=== PATIENT | female | born 1995 | race Caucasian/White ===

== ENCOUNTER 2019-05-15 06:28 | Day surgery (SDC) | payer MEDICAID ==
[2019-05-15] MEDS ORDERED: Lidocaine 1% with EPINEPHrine 1:100,000 50 ML MDV ONE (06:43)
[2019-05-15] MEDS ORDERED: Bupivacaine 0.5% 50 ML MDV ONE (06:43)
[2019-05-15] MEDS ORDERED: Acetaminophen 500 MG Tab PO ONE (06:45)
[2019-05-15] MEDS ORDERED: Dextrose 5%-Lactated Ringers 1,000 ML IV SCH (07:00)
[2019-05-15] MEDS ORDERED: ceFAZolin 2 GM in Sodium Chloride 0.9% 50 ML IV ONE (07:00)
[2019-05-15] MEDS ORDERED: Ondansetron 4 MG/2 ML SDV ONE (07:11)
[2019-05-15] MEDS ORDERED: Propofol 200 MG/20 ML SDV ONE (07:11)
[2019-05-15] MEDS ORDERED: Dexamethasone 4 MG/ML SDV ONE (07:11)
[2019-05-15] MEDS ORDERED: Succinylcholine 200 MG/10 ML MDV ONE (07:11)
[2019-05-15] MEDS ORDERED: Glycopyrrolate 0.2 MG/ML 5 ML MDV ONE (07:11)
[2019-05-15] MEDS ORDERED: Neostigmine Methylsulfate 1 MG/ML 5 ML Syringe ONE (07:11)
[2019-05-15] MEDS ORDERED: Rocuronium 50 MG/5 ML Vial ONE (07:11)
[2019-05-15] MEDS ORDERED: fentaNYL 250 MCG/5 ML SDV ONE (07:12)
[2019-05-15] MEDS ORDERED: Bupivacaine 0.5%/EPINEPHrine 1:200,000 50 ML MDV ONE (08:15)
[2019-05-15] MEDS ORDERED: Ketorolac 60 MG/2 ML SDV ONE (08:20)
[2019-05-15] MEDS ORDERED: fentaNYL 100 MCG/2 ML SDV IVPUSH ONE (08:59)
[2019-05-15 10:08] VITALS: BP 87/62; PULSE 70
--- NOTE | 2019-05-29 12:40 | OR ---
DATE OF PROCEDURE: 05/15/2019 SURGEON: Mau Daley MD PREOPERATIVE DIAGNOSIS: Large lipoma, posterior neck. POSTOPERATIVE DIAGNOSIS: Large subfascial lipoma, posterior neck. OPERATIVE PROCEDURE: Excision of large subfascial lipoma, posterior neck (17140). ANESTHESIA: General. INDICATION FOR PROCEDURE: This is a 23-year-old presenting with a large lipoma located in the posterior neck. Interestingly, her mother had a similar lipoma in the same location excised several years ago. The plan is to proceed with excision of this. Potential risks including bleeding, infection, some cosmetic deformity, the significant likelihood of this lipoma recurring over time, given that lipomas in this area have a fairly ill-defined border, were all gone over, and the patient wishes to proceed. DETAILS OF PROCEDURE: The patient was taken to the operating room and after lining the vertical incision line in a sitting position to avoid distortion of the incision after the patient's positioning, the patient was taken to the operating room and placed in a left lateral decubitus position, after general endotracheal anesthetic had been placed. The posterior neck and surrounding areas were then prepped and draped. Vertical incision was then made and carried down through the skin and subcutaneous tissue and down onto the surface of the lipoma. Lipoma was gradually dissected free from the surrounding soft tissues. This had 2 points where it had dissected down underneath the musculature adjacent to the spinous processes, i.e. had a significant subfascial component. This was eventually dissected free in what appeared to be a complete layer. The measurement of the resected specimen was 6.2 cm. At this point, hemostasis was confirmed with electrocautery and the area irrigated with Zyvox containing saline solution. A 7 round Naif-Lennon drain was then placed through a stab wound just inferior and to the left of the incision, and the incision was closed with 2 layers of 3-0 and 4-0 Vicryl stitch deep and then wesley for the skin. Dressing was applied. The patient was taken to the recovery room in satisfactory condition. Mau Daley MD /[id number]
== END 2019-05-15 10:42 | disposition home or self-care (01) ==
LOC: JP.SDS 06:28
PROVIDERS: ATTEND Surgery
DX: D17.0 Benign lipomatous neoplasm of skin and subcutaneous tissue of head, face and neck (principal); K21.9 Gastro-esophageal reflux disease without esophagitis
CPT/HCPCS: 21554; 36415; 80048; 81025; 85027; 88304; A9270; J0330; J0690; J1100; J1885; J2020; J2405; J2704; J2710; J3010; J3490; J7042; J7050

== ENCOUNTER 2019-05-29 09:19 | Emergency (ER) | payer MEDICAID ==
[2019-05-29 10:00] VITALS: BP 145/78; PULSE 72
--- NOTE | 2019-05-29 10:02 | EDM.PDOC ---
ED HPI GENERAL MEDICAL PROBLEM - General Chief Complaint: General Stated Complaint: OPEN INCISION POST SURGERY Time Seen by Provider: 05/29/19 10:00 Source of Information: Reports: Patient History Limitations: Reports: No Limitations - History of Present Illness INITIAL COMMENTS - FREE TEXT/NARRATIVE: 23 yo who had a lipoma resection of the neck on 05/15. Presents today concerned of drainage from the wound that she noticed this AM. Yellow tinged thin fluid, no obvious purulence. No fevers or chills. No increased pain. - Related Data Allergies Allergy/AdvReac Type Severity Reaction Status Date / Time No Known Allergies Allergy Verified 05/29/19 10:00 Home Meds: Home Meds Acetaminophen [Tylenol] 650 mg PO Q4HR PRN 05/13/19 [History] Clotrimazole [Lotrimin AF 1% Crm] 1 cm TOP BID 05/13/19 [History] Ibuprofen [Motrin] 600 mg PO Q6H PRN 05/13/19 [History] Past Medical History Cardiovascular History: Reports: Heart Murmur Gastrointestinal History: Reports: Other (See Below) Other Gastrointestinal History: fatty liver in past Genitourinary History: Reports: UTI, Recurrent [employer] History: Reports: Musculoskeletal History: Reports: Neck Pain, Chronic Neurological History: Reports: Headaches, Chronic Endocrine/Metabolic History: Reports: Obesity/BMI 30+ Dermatologic History: Reports: Eczema - Infectious Disease History Infectious Disease History: Reports: Chicken Pox Social & Family History - Caffeine Use Caffeine Use: Reports: Soda ED ROS GENERAL - Review of Systems Review Of Systems: See Below Constitutional: Reports: No Symptoms HEENT: Reports: No Symptoms Respiratory: Reports: No Symptoms Cardiovascular: Reports: No Symptoms Endocrine: Reports: No Symptoms GI/Abdominal: Reports: No Symptoms : Reports: No Symptoms Musculoskeletal: Reports: No Symptoms Skin: Reports: Wound Neurological: Reports: No Symptoms Psychiatric: Reports: No Symptoms Hematologic/Lymphatic: Reports: No Symptoms Immunologic: Reports: No Symptoms ED EXAM, GENERAL - Physical Exam Exam: See Below Exam Limited By: No Limitations General Appearance: Alert, No Apparent Distress Ears: Normal External Exam Nose: Normal Inspection Throat/Mouth: Normal Inspection Head: Atraumatic, Normocephalic Respiratory/Chest: No Respiratory Distress, Lungs Clear Cardiovascular: Regular Rate, Rhythm GI/Abdominal: Soft, No Distention Back Exam: Normal Inspection Extremities: Normal Inspection Neurological: Alert, Oriented Psychiatric: Normal Affect, Normal Mood Skin Exam: Warm, Dry, Wound/Incision (incision posterior neck: appear wells healing, no obvious dehiscence, area of granulation around inferior part of would with yellow tinged drainage) Course - Vital Signs Last Recorded V/S: Last Vital Signs Temp 36.7 C 05/29/19 09:58 Pulse 72 05/29/19 09:58 Resp 16 05/29/19 09:58 BP 145/78 H 05/29/19 09:58 Pulse Ox 99 05/29/19 09:58 - Re-Assessments/Exams Free Text/Narrative Re-Assessment/Exam: 23 yo with recent lipoma resection on posterior neck presents with concerns of wound drainage No evidence of infection, not systemically ill ? seroma Surgical PA en route to evaluate and assist with mgmt 05/29/19 10:23 Free Text/Narrative Re-Assessment/Exam: Sutures opened by PA. Reportedly lots of purulence Plan to pack the wound over weekend. Follow up on Saturday. No antibiotics Discharged 05/29/19 10:44 Departure - Departure Time of Disposition: 10:44 Disposition: Home, Self-Care 01 Clinical Impression: Surgical wound present - Discharge Information Referrals: Angely Alvarez MD [Primary Care Provider] - Forms: ED Department Discharge Additional Instructions: Please follow the directions of the surgeons and follow up with them on Saturday
== END 2019-05-29 11:03 | disposition home or self-care (01) ==
LOC: JP.ED 09:19
DX: Z48.817 Encounter for surgical aftercare following surgery on the skin and subcutaneous tissue (principal)
CPT/HCPCS: 99282